=== PATIENT | female | born 1960 | race Caucasian/White ===

== ENCOUNTER 2018-07-20 12:06 | Emergency (ER) | payer BC ==
[2018-07-20 13:00] VITALS: BP 129/76
--- NOTE | 2018-07-20 13:06 | UC ---
Respiratory Complaint HPI - HPI Summary HPI Summary: Started w/ 5 days of coughing, headache, muscle aches and fatigue. coworkers are sick contacts. did not get flu shot this year. - History of Current Complaint Chief Complaint: UCRespiratory Stated Complaint: COUGH, SORE THROAT Time Seen by Provider: 07/20/18 13:02 Hx Obtained From: Patient ?: No Pain Intensity: 5 Pain Scale Used: 0-10 Numeric Character: Cough: Nonproductive Aggravating Factors: Deep Breaths Alleviating Factors: OTC Meds Associated Signs And Symptoms: Positive: Fever, Chills, Pleuritic Chest Pain - Allergies/Home Medications Allergies/Adverse Reactions: Allergies Allergy/AdvReac Type Severity Reaction Status Date / Time MS Hydrochlorothiazide Allergy "FLU LIKE Verified 02/15/15 11:08 [Hydrochlorothiazide] SYMPTOMS MS Sulfa Drugs [Sulfa Drugs] Allergy FEVER, Verified 02/15/15 11:08 SWELLING Perfume [Fragrance] Allergy Unknown Verified 02/15/15 11:08 Reaction Details Home Medications: Home Medications Albuterol HFA INHALER* [Ventolin HFA Inhaler*] 07/20/18 [History] PMH/Surg Hx/FS Hx/Imm Hx Cardiovascular History: Hypertension - Surgical History Surgical History: Yes Surgery Procedure, Year, and Place: RIGHT CARPAL TUNNEL RELEASE-[facility] [place]. POLYP REMOVED FROM NOSE-24 YEARS AGO- [facility] [place]. CATARACTS BILATERAL- [facility] - Social History Alcohol Use: None Substance Use Type: None Smoking Status (MU): Former Smoker Amount Used/How Often: 3-4 CIGARETTES PER DAY X 1 YEAR When Did the Patient Quit Smoking/Using Tobacco: 28 YEARS AGO Review of Systems All Other Systems Reviewed And Are Negative: Yes Constitutional: Positive: Fever, Chills, Fatigue Skin: Positive: Negative Respiratory: Positive: Cough, Other - chest congestion, +pleuritic chest pain Cardiovascular: Positive: Negative Gastrointestinal: Positive: Negative Musculoskeletal: Positive: Myalgia Neurological: Positive: Headache Physical Exam Triage Information Reviewed: Yes Appearance: Well-Appearing Vital Signs: Initial Vital Signs Temp 98.4 F 07/20/18 12:54 Pulse 106 07/20/18 12:54 Resp 18 07/20/18 12:54 BP 129/76 07/20/18 12:54 Pulse Ox 94 07/20/18 12:54 Vital Signs Reviewed: Yes Eyes: Positive: Conjunctiva Clear ENT: Positive: Pharynx normal, TMs normal, Uvula midline Neck: Positive: Supple, Nontender, No Lymphadenopathy Respiratory: Positive: Rhonchi, Other: - coughing thorughout visit Cardiovascular Exam: Normal Neurological: Positive: Fatigued Skin Exam: Normal UC Diagnostic Evaluation - Laboratory O2 Sat by Pulse Oximetry: 94 Respiratory Course/Dx - Course Course Of Treatment: 5 day hx of flu-like symptoms. +influenza. comfort measures encouraged. vitals good and although coughing during visit lung sounds are clear. - Differential Dx/Diagnosis Provider Diagnosis: Influenza Discharge - Sign-Out/Discharge Documenting (check all that apply): Patient Departure All imaging exams completed and their final reports reviewed: No Studies - Discharge Plan Condition: Good Disposition: HOME Prescriptions: Benzonatate CAP* [Tessalon 100 MG CAP*] 100 mg PO TID #15 cap Patient Education Materials: Influenza (ED) Referrals: No Primary Care Phys,NOPCP [Primary Care Provider] - Additional Instructions: Please take rest and increase fluids. - Billing Disposition and Condition Condition: GOOD Disposition: Home
== END 2018-07-20 13:45 | disposition home or self-care (01) ==
LOC: UCEAST 12:06
DX: J11.1 Influenza due to unidentified influenza virus with other respiratory manifestations (principal); I10 Essential (primary) hypertension; Z88.8 Allergy status to other drugs, medicaments and biological substances; Z88.2 Allergy status to sulfonamides; Z91.09 Other allergy status, other than to drugs and biological substances; Z87.891 Personal history of nicotine dependence
CPT/HCPCS: 99212; G0463